=== PATIENT | female | born 1980 | race Caucasian/White ===

== ENCOUNTER → 2020-12-24 | Outpatient (CLI) | payer BC, OTHER ==
[~2020-12-24] MED LIST: BACTRIM DS TAB1 EACH PO; CALCIUM MAGNESIUM PO; COLLAGEN POWDER PO; GINGER ROOT PO; IBUPROFEN600 MG PO; LUTEIN/ZEAXANTHIN PO; NORCO 5-325 TA1 EACH PO; OMEGA PO; [UNRECOGNIZED DRUG - OTHER] PO; [UNRECOGNIZED DRUG - OTHER] PO; [UNRECOGNIZED DRUG - OTHER] PO; [UNRECOGNIZED DRUG - OTHER] PO
== END ==
LOC: MAMO 12:36
DX: Z12.31 Encounter for screening mammogram for malignant neoplasm of breast (principal); Z98.82 Breast implant status
CPT/HCPCS: 77063; 77067